=== PATIENT | male | born 1930 | race Caucasian/White ===

== ENCOUNTER 2016-11-21 15:37 | Observation (INO) | payer MEDICARE, BC ==
[2016-11-21] MEDS ORDERED: Sodium Chloride 0.9% 10 ML Syringe FLUSH PRN (16:04)
--- NOTE | 2016-11-21 16:08 | EDM.PDOC ---
ED HPI GENERAL MEDICAL PROBLEM - General Chief Complaint: General Stated Complaint: IRREGULAR EKG Time Seen by Provider: 11/21/16 15:40 Source of Information: Reports: Patient ([id number]) History Limitations: Reports: No Limitations - History of Present Illness Onset: Unknown/Unsure Duration: Chronic Improves with: Reports: None Worsens with: Reports: None Context: Reports: Sick Contact Associated Symptoms: Reports: No Other Symptoms - Related Data Allergies Allergy/AdvReac Type Severity Reaction Status Date / Time No Known Allergies Allergy Verified 11/21/16 15:56 Home Meds: Home Meds Acetaminophen with Codeine [Tylenol with Codeine #3 Tablet] 1 each PO Q6H PRN [History] Albuterol/Ipratropium [DuoNeb 3.0-0.5 MG/3 ML] 3 ml NEB BIDRT 04/07/15 [History] Aspirin [Halfprin] 81 mg PO DAILY 04/07/15 [History] Budesonide [Pulmicort] 0.25 mg NEB BIDRT 04/07/15 [History] Calcium Carbonate/Vitamin D3 [Calcium 600 + Vit D 200] 1 each PO DAILY 04/07/15 [History] Clopidogrel [Plavix] 75 mg PO DAILY 04/07/15 [History] Cyanocobalamin (Vitamin B-12) [Cyanocobalamin Injection] 1,000 mcg IM ASDIRECTED 04/07/15 [History] Isosorbide Mononitrate [Imdur] 30 mg PO DAILY 04/07/15 [History] Levothyroxine Sodium [Synthroid] 137 mcg PO ACBREAKFAST 04/07/15 [History] Metoprolol Tartrate [Lopressor] 25 mg PO BID 04/07/15 [History] Multivitamin [Multivitamins] 1 each PO DAILY 04/07/15 [History] Simvastatin [Zocor] 80 mg PO BEDTIME 04/07/15 [History] Zolpidem [Ambien] 10 mg PO BEDTIME 04/07/15 [History] Past Medical History Cardiovascular History: Reports: CAD, High Cholesterol, Hypertension, MS, Other (See Below) Other Cardiovascular History: HYPERLIPIDEMIA, NSTEMI, PERIPHERAL VASCULAR DIS. Musculoskeletal History: Reports: Fracture, Other (See Below) Other Musculoskeletal History: SEE SURGERY AREA Psychiatric History: Reports: Depression Hematologic History: Reports: B12 Deficiency - Past Surgical History Cardiovascular Surgical History: Reports: Carotid Endarterectomy, Coronary Artery Bypass, Other (See Below) Musculoskeletal Surgical History: Reports: Other (See Below) Social & Family History - Tobacco Use Smoking Status *Q: Former Smoker Years of Tobacco use: 10 Packs/Tins Daily: 1 Used Tobacco, but Quit: Yes Month Tobacco Last Used: Quit 40 years ago - Recreational Drug Use Recreational Drug Use: No ED ROS GENERAL - Review of Systems Review Of Systems: See Below Constitutional: Reports: No Symptoms HEENT: Reports: No Symptoms Respiratory: Reports: No Symptoms Cardiovascular: Reports: No Symptoms Endocrine: Reports: No Symptoms GI/Abdominal: Reports: No Symptoms : Reports: No Symptoms Musculoskeletal: Reports: No Symptoms Skin: Reports: No Symptoms Neurological: Reports: No Symptoms Psychiatric: Reports: No Symptoms Hematologic/Lymphatic: Reports: No Symptoms Immunologic: Reports: No Symptoms ED EXAM, GENERAL - Physical Exam Exam: See Below Exam Limited By: No Limitations General Appearance: Alert, WD/WN, No Apparent Distress Ears: Normal External Exam, Normal Canal, Hearing Grossly Normal, Normal TMs Ear Exam: Bilateral Ear: Auricle Normal, Canal Normal, TM normal Nose: Normal Inspection, Normal Mucosa, No Blood Throat/Mouth: Normal Inspection, Normal Lips, Normal Teeth, Normal Gums, Normal Oropharynx, Normal Voice, No Airway Compromise Head: Atraumatic, Normocephalic Neck: Normal Inspection, Supple, Non-Tender, Full Range of Motion Respiratory/Chest: No Respiratory Distress, Lungs Clear, Normal Breath Sounds, No Accessory Muscle Use, Chest Non-Tender Cardiovascular: Normal Peripheral Pulses, Regular Rate, Rhythm, No Edema, No Gallop, No JVD, No Murmur, No Rub, Other (EKG shows normal sinus rhythm with a right bundle branch block and 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 and seen on previous EKG dating back a 1999) GI/Abdominal: Normal Bowel Sounds, Soft, Non-Tender, No Organomegaly, No Distention, No Abnormal Bruit, No Mass (Male) Exam: No Hernia, Normal Inspection, Normal Prostate, Circumcised Rectal (Males) Exam: Normal Exam, Normal Rectal Tone, Prostate Normal Back Exam: Normal Inspection, Full Range of Motion, NT Extremities: Normal Inspection, Normal Range of Motion, Non-Tender, Normal Capillary Refill, No Pedal Edema Neurological: Alert, Oriented, CN II-XII Intact, Normal Cognition, Normal Gait, Normal Reflexes, No Motor/Sensory Deficits Psychiatric: Normal Affect, Normal Mood Skin Exam: Warm, Dry, Intact, Normal Color, No Rash, Other (Sutures removed in back of neck) Lymphatic: No Adenopathy Course - Vital Signs Last Recorded V/S: Last Vital Signs Temp 99.1 F 11/21/16 16:30 Pulse 60 11/21/16 16:30 Resp 20 11/21/16 16:30 BP 199/92 H 11/21/16 16:30 Pulse Ox 99 11/21/16 16:30 - Orders/Labs/Meds Orders: Active Orders 24 hr Category Date Time Status CXR [Chest 2V] [CR] Stat Exams 11/21/16 16:04 Taken BASIC METABOLIC PANEL,BMP [CHEM] Stat Lab 11/21/16 16:20 Received TROPONIN I [CHEM] Stat Lab 11/21/16 16:20 Received Sodium Chloride 0.9% [Saline Flush] Med 11/21/16 16:04 Active 10 ml FLUSH ASDIRECTED PRN Old Chart [Obtain Past Medical Record] [OM.PC] Routine Oth 11/21/16 16:05 Active Saline Lock Insert [OM.PC] Stat Oth 11/21/16 16:05 Ordered Medication Orders Sodium Chloride (Saline Flush) 10 ml FLUSH ASDIRECTED PRN PRN Reason: Keep Vein Open Labs: Laboratory Tests 11/21/16 Range/Units 16:20 WBC 7.1 (4.0-10.2) K/uL RBC 4.54 (4.33-5.41) M/uL Hgb 13.7 (13.1-16.8) g/dL Hct 42.3 (39.0-49.0) % MCV 93.2 (84.0-98.0) fL MCH 30.2 (28.2-33.3) pg MCHC 32.4 (31.7-36.0) g/dL RDW 13.5 (11.2-14.1) % Plt Count 199 (150-350) K/uL Neut % (Auto) 47.4 (45.0-80.0) % Lymph % (Auto) 35.5 (10.0-50.0) % [place] % (Auto) 10.2 (2.0-14.0) % Eos % (Auto) 6.5 H (0.0-5.0) % Baso % (Auto) 0.4 (0.0-2.0) % Neut # (Auto) 3.34 (1.40-7.00) K/uL Lymph # (Auto) 2.50 (0.50-3.50) K/uL [place] # (Auto) 0.72 (0.00-1.00) K/uL Eos # (Auto) 0.46 (0.00-0.50) K/uL Baso # (Auto) 0.03 (0.00-0.20) K/uL Meds: Medications Generic Name Dose Route Start Last Admin Trade Name Freq PRN Reason Stop Dose Admin Sodium Chloride 10 ml 11/21/16 16:04 Saline Flush FLUSH ASDIRECTED PRN Keep Vein Open Departure - Departure Time of Disposition: 16:44 Disposition: Home, Self-Care 01 Condition: Good 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) - Discharge Information Referrals: PCP,Not In Area [Primary Care Provider] - Forms: ED Department Discharge Care Plan Goals: Patient sent home with his current medications suture removal in the ER patient stable - My Orders Last 24 Hours: My Active Orders 11/21/16 16:04 CXR [Chest 2V] [CR] Stat Sodium Chloride 0.9% [Saline Flush] 10 ml FLUSH ASDIRECTED PRN 11/21/16 16:05 Old Chart [Obtain Past Medical Record] [OM.PC] Routine Saline Lock Insert [OM.PC] Stat 11/21/16 16:20 BASIC METABOLIC PANEL,BMP [CHEM] Stat TROPONIN I [CHEM] Stat - Assessment/Plan Last 24 Hours: My Active Orders 11/21/16 16:04 CXR [Chest 2V] [CR] Stat Sodium Chloride 0.9% [Saline Flush] 10 ml FLUSH ASDIRECTED PRN 11/21/16 16:05 Old Chart [Obtain Past Medical Record] [OM.PC] Routine Saline Lock Insert [OM.PC] Stat 11/21/16 16:20 BASIC METABOLIC PANEL,BMP [CHEM] Stat TROPONIN I [CHEM] Stat
[2016-11-21] MEDS ORDERED: Acetaminophen/Codeine 300-30 MG Tab PO PRN (18:59)
[2016-11-21] MEDS ORDERED: Cyanocobalamin (Vitamin B12) 1,000 MCG/ML SDV IM SCH (19:00)
[2016-11-21] MEDS ORDERED: Zolpidem 5 MG Tab PO SCH (20:00)
[2016-11-21] MEDS ORDERED: Simvastatin 20 MG Tab PO SCH (20:00)
[2016-11-21] MEDS: Albuterol/Ipratropium 3.0-0.5 MG/3 ML Neb Soln NEB SCH (21:30)
[2016-11-21] MEDS: Metoprolol Tartrate 25 MG Tab PO SCH (21:40)
[2016-11-21] MEDS: Budesonide 0.25 MG/2 ML Neb Susp NEB SCH (21:40)
[2016-11-22] MEDS ORDERED: Levothyroxine 25 MCG Tab PO SCH (07:30)
[2016-11-22] MEDS ORDERED: Levothyroxine 112 MCG Tab PO SCH (07:30)
[2016-11-22] MEDS: Albuterol/Ipratropium 3.0-0.5 MG/3 ML Neb Soln NEB SCH (07:35)
[2016-11-22] MEDS: Metoprolol Tartrate 25 MG Tab PO SCH (07:35)
[2016-11-22] MEDS: Budesonide 0.25 MG/2 ML Neb Susp NEB SCH (07:35)
[2016-11-22] MEDS ORDERED: Clopidogrel 75 MG Tab PO SCH (08:00)
[2016-11-22] MEDS ORDERED: Isosorbide Mononitrate 30 MG Tab.ER PO SCH (08:00)
[2016-11-22] MEDS ORDERED: Gabapentin 100 MG Cap PO SCH (08:00)
[2016-11-22] MEDS ORDERED: Aspirin 81 MG Tab.EC PO SCH (08:00)
[2016-11-22] MEDS ORDERED: Calcium Carbonate/Vitamin D3 625 MG-125 Unit Tab PO SCH (08:00)
[2016-11-22] MEDS ORDERED: Multivitamin Tab PO SCH (08:00)
--- NOTE | 2016-11-22 10:59 | PCM.DCSUM1 ---
Discharge Summary - Hospital Course Free Text/Narrative:: Patient is a 86-year-old who was referred from the clinic with dysrhythmia bifascicular block and a right bundle branch block patient is known to have coronary arterial disease has seen cardiology and cardiology does not think he' s a candidate for bypass or stenting today he seen in the emergency room his troponins were L first troponins were elevated and was admitted for observation he did fine his second troponin came down and so that his third there still elevated probably secondary to pulmonary disease patient is pain-free and wants to go home - Discharge Data Discharge Date: 11/22/16 Discharge Disposition: Home, Self-Care 01 Condition: Good - Patient Summary/Data Hospital Course: Patient did good troponins 3 were checked still slightly elevated we'll send home patient is to return if any chest pain or discomfort please see above narrative for more details patient will go home on his regular medications as ordered - Patient Instructions Diet: Heart Healthy Diet Activity: As Tolerated Driving: May Drive Today Showering/Bathing: May Shower - Discharge Plan Home Medications: Home Meds Acetaminophen with Codeine [Tylenol with Codeine #3 Tablet] 1 each PO Q6H PRN [History] Albuterol/Ipratropium [DuoNeb 3.0-0.5 MG/3 ML] 3 ml NEB BIDRT 04/07/15 [History] Aspirin [Halfprin] 81 mg PO DAILY 04/07/15 [History] Budesonide [Pulmicort] 0.25 mg NEB BIDRT 04/07/15 [History] Calcium Carbonate/Vitamin D3 [Calcium 600 + Vit D 200] 1 each PO DAILY 04/07/15 [History] Clopidogrel [Plavix] 75 mg PO DAILY 04/07/15 [History] Cyanocobalamin (Vitamin B-12) [Cyanocobalamin Injection] 1,000 mcg IM Q30D 04/07 [History] Isosorbide Mononitrate [Imdur] 30 mg PO DAILY 04/07/15 [History] Levothyroxine Sodium [Synthroid] 137 mcg PO ACBREAKFAST 04/07/15 [History] Metoprolol Tartrate [Lopressor] 25 mg PO BID 04/07/15 [History] Multivitamin [Multivitamins] 1 each PO DAILY 04/07/15 [History] Simvastatin [Zocor] 80 mg PO BEDTIME 04/07/15 [History] Zolpidem [Ambien] 10 mg PO BEDTIME 04/07/15 [History] Gabapentin [Neurontin] 100 mg PO TID 11/21/16 [History] Forms: ED Department Discharge Referrals: Stephen George MD [Primary Care Provider] - PCP,Not In Area [Ordering Only Provider] - - Discharge Summary/Plan Comment DC Time >30 min.: No Discharge Summary/Plan Comment: Patient will be discharged he is to follow-up with primary surgical site healed and clean - General Info Date of Service: 11/22/16 Admission Dx/Problem (Free Text: Irregular heart rate - Review of Systems General: Reports: No Symptoms HEENT: Reports: No Symptoms Pulmonary: Reports: Shortness of Breath Cardiovascular: Reports: No Symptoms Gastrointestinal: Reports: No Symptoms Genitourinary: Reports: No Symptoms Musculoskeletal: Reports: No Symptoms Skin: Reports: No Symptoms Neurological: Reports: No Symptoms Psychiatric: Reports: No Symptoms - Patient Data Vitals - Most Recent: Last Vital Signs Temp 98.6 F 11/22/16 07:47 Pulse 61 11/22/16 07:47 Resp 18 11/22/16 07:47 BP 152/97 H 11/22/16 07:47 Pulse Ox 95 11/22/16 07:47 Weight - Most Recent: 200 lb 15.997 oz I&O - Last 24 hours: Intake & Output 11/21/16 11/22/16 11/22/16 22:59 06:59 14:59 Intake Total 200 60 Balance 200 60 Lab Results - Last 24 hrs: Laboratory Results - last 24 hr 11/21/16 11/22/16 Range/Units 23:49 07:40 Troponin I 0.126 H* 0.117 H* (0.000-0.056) ng/mL Med Orders - Current: Current Medications Acetaminophen/Codeine Phosphate (Tylenol With Codeine No.3 300mg/30mg) 1 tab PO Q6H PRN PRN Reason: Pain Albuterol/Ipratropium (Duoneb 3.0-0.5 Mg/3 Ml) 3 ml NEB BIDRT [facility] Last Admin: 11/22/16 07:35 Dose: 3 ml Aspirin (Halfprin) 81 mg PO DAILY [facility] Last Admin: 11/22/16 07:35 Dose: 81 mg Budesonide (Pulmicort) 0.25 mg NEB BIDRT [facility] Last Admin: 11/22/16 07:35 Dose: 0.25 mg Calcium Carbonate (Oystcal-D 625 Mg-125 Units) 1 tab PO DAILY [facility] Last Admin: 11/22/16 07:35 Dose: 1 tab Clopidogrel Bisulfate (Plavix) 75 mg PO DAILY [facility] Last Admin: 11/22/16 07:35 Dose: 75 mg Cyanocobalamin (Vitamin B12) 1,000 mcg IM Q30D [facility] Gabapentin (Neurontin) 100 mg PO TID [facility] Last Admin: 11/22/16 07:35 Dose: 100 mg Isosorbide Mononitrate (Imdur) 30 mg PO DAILY [facility] Last Admin: 11/22/16 07:35 Dose: 30 mg Levothyroxine Sodium (Levothyroxine) 112 mcg PO ACBREAKFAST [facility] Last Admin: 11/22/16 07:35 Dose: 112 mcg Levothyroxine Sodium (Levothyroxine) 25 mcg PO ACBREAKFAST [facility] Last Admin: 11/22/16 07:35 Dose: 25 mcg Metoprolol Tartrate (Lopressor) 25 mg PO BID [facility] Last Admin: 11/22/16 07:35 Dose: 25 mg Multivitamins/Minerals/Vitamin C (Tab-A-Gavin) 1 tab PO DAILY [facility] Last Admin: 11/22/16 07:35 Dose: 1 tab Simvastatin (Zocor) 80 mg PO BEDTIME [facility] Last Admin: 11/21/16 21:29 Dose: 80 mg Sodium Chloride (Saline Flush) 10 ml FLUSH ASDIRECTED PRN PRN Reason: Keep Vein Open Last Admin: 11/22/16 07:36 Dose: 10 ml Zolpidem Tartrate (Ambien) 10 mg PO BEDTIME [facility] Last Admin: 11/21/16 21:27 Dose: 10 mg - Exam General: Reports: Alert, Oriented HEENT: Reports: Pupils Equal, Pupils Reactive, EOMI, Mucous Membr. Moist/[place] Neck: Reports: Supple Lungs: Reports: Clear to Auscultation, Normal Respiratory Effort Cardiovascular: Reports: Regular Rate, Regular Rhythm GI/Abdominal Exam: Normal Bowel Sounds, Soft, Non-Tender, No Organomegaly, No Distention, No Abnormal Bruit, No Mass, Pelvis Stable (Male) Exam: No Hernia, Normal Inspection, Normal Prostate, Circumcised Rectal (Males) Exam: Normal Exam, Normal Rectal Tone, Prostate Normal Back Exam: Reports: Normal Inspection, Full Range of Motion Extremities: Normal Inspection, Normal Range of Motion, Non-Tender, No Pedal Edema, Normal Capillary Refill Skin: Reports: Warm, Dry, Intact Wound/Incisions: Reports: Healing Well Neurological: Reports: No New Focal Deficit Psy/Mental Status: Reports: Alert, Normal Affect, Normal Mood EKG INTERPRETATION EKG Date: 11/22/16 [place]: Normal P-Wave: Present QRS: Normal ST-T: Normal QT: Normal EKG Interpretation Comments: EKG unchanged for the last 18 years *Q Meaningful Use (DIS) - VTE *Q VTE Criteria *Q: - Stroke *Q Stroke Criteria *Q: - AMI *Q AMI Criteria *Q:
[2016-11-22 11:06] VITALS: BP 155/96
== END 2016-11-22 11:30 | disposition home or self-care (01) ==
LOC: LL.ED 15:37 → LL.MS 17:06
PROVIDERS: ADMIT Family Medicine; ATTEND Family Medicine
DX: R79.89 Other specified abnormal findings of blood chemistry (principal); I25.2 Old myocardial infarction; I25.10 Atherosclerotic heart disease of native coronary artery without angina pectoris; I10 Essential (primary) hypertension; E78.00 Pure hypercholesterolemia, unspecified; E78.5 Hyperlipidemia, unspecified; F32.9 Major depressive disorder, single episode, unspecified; Z79.899 Other long term (current) drug therapy; Z79.82 Long term (current) use of aspirin; Z87.891 Personal history of nicotine dependence; Z95.1 Presence of aortocoronary bypass graft; Z98.890 Other specified postprocedural states
CPT/HCPCS: 36415; 71020; 80048; 84484; 85025; 93005; 94664; 99285; A9270; G0378; J7050; J7634

== ENCOUNTER 2021-07-19 11:33 | Observation (INO) | payer MEDICARE, BC ==
[2021-07-19] MEDS ORDERED: Sodium Chloride 0.9% 10 ML Syringe FLUSH PRN (11:39)
[2021-07-19] MEDS ORDERED: Aspirin 81 MG Tab.EC PO ONE (12:11)
[2021-07-19 12:21] LABS: ANION GAP 7.2 meq/L (7-15)
[2021-07-19] MEDS ORDERED: Acetaminophen/Codeine 300-30 MG Tab PO PRN (15:00)
[2021-07-19] MEDS: Metoprolol Tartrate 25 MG Tab PO SCH (17:24)
[2021-07-19] MEDS ORDERED: Sodium Chloride 0.9% 500 ML IV SCH (17:30)
[2021-07-19] MEDS: Pregabalin 25 MG Cap PO SCH (17:43)
[2021-07-19] MEDS ORDERED: Gabapentin 100 MG Cap PO SCH (18:00)
[2021-07-19] MEDS ORDERED: Zolpidem 5 MG Tab PO SCH (20:00)
[2021-07-19] MEDS ORDERED: Simvastatin 20 MG Tab PO SCH (20:00)
[2021-07-19] MEDS: Budesonide 0.25 MG/2 ML Neb Susp NEB SCH (20:10)
[2021-07-19] MEDS: Albuterol/Ipratropium 3.0-0.5 MG/3 ML Neb Soln NEB SCH (20:10)
[2021-07-19] MEDS ORDERED: Metoprolol Tartrate 25 MG Tab PO ONE (23:49)
[2021-07-20] MEDS: Pregabalin 25 MG Cap PO SCH ×2 (07:40→11:56)
[2021-07-20] MEDS: Budesonide 0.25 MG/2 ML Neb Susp NEB SCH (07:40)
[2021-07-20] MEDS: Albuterol/Ipratropium 3.0-0.5 MG/3 ML Neb Soln NEB SCH (07:40)
[2021-07-20] MEDS: Metoprolol Tartrate 25 MG Tab PO SCH (07:41)
[2021-07-20] MEDS ORDERED: Levothyroxine 25 MCG Tab PO SCH (08:00)
[2021-07-20] MEDS ORDERED: Levothyroxine 112 MCG Tab PO SCH (08:00)
[2021-07-20] MEDS ORDERED: Aspirin 81 MG Tab.EC PO SCH (08:00)
[2021-07-20] MEDS ORDERED: Isosorbide Mononitrate 30 MG Tab.ER PO SCH (08:00)
[2021-07-20] MEDS ORDERED: Clopidogrel 75 MG Tab PO SCH (08:00)
[2021-07-20 08:02] LABS: ANION GAP 7.7 meq/L (7-15)
[2021-07-20 11:59] VITALS: BP 145/94; PULSE 61
== END 2021-07-20 15:35 | disposition home or self-care (01) ==
LOC: LL.ED 11:33 → INTOOBSV 13:05 → LL.MS 13:05
PROVIDERS: ADMIT Emergency Medicine; ATTEND Emergency Medicine
DX: R61 Generalized hyperhidrosis (principal); R07.89 Other chest pain; R55 Syncope and collapse; R79.89 Other specified abnormal findings of blood chemistry; R00.1 Bradycardia, unspecified; N28.9 Disorder of kidney and ureter, unspecified; I25.10 Atherosclerotic heart disease of native coronary artery without angina pectoris; E78.5 Hyperlipidemia, unspecified; E03.9 Hypothyroidism, unspecified; E53.8 Deficiency of other specified B group vitamins; J43.9 Emphysema, unspecified; I50.9 Heart failure, unspecified; I11.0 Hypertensive heart disease with heart failure; Z79.82 Long term (current) use of aspirin; Z79.899 Other long term (current) drug therapy
CPT/HCPCS: 36415; 71045; 80048; 80053; 81001; 83605; 83735; 83880; 84443; 84484; 85025; 85379; 85610; 93005; 94640; 99285-25; A9270-GY; G0378; J3490; J7040; J7620-GY

== ENCOUNTER 2021-07-31 12:12 | Emergency (ER) | payer MEDICARE, BC ==
[2021-07-31 12:58] LABS: ANION GAP 7.8 meq/L (7-15); CHLORIDE,CL 106 mmol/L (98-107); SODIUM,NA 142 mmol/L (136-145)
[2021-07-31 13:26] VITALS: BP 133/81; PULSE 62
[2021-07-31] MEDS: Acetaminophen/Codeine 300-30 MG Tab PO ONE (13:43)
== END 2021-07-31 14:00 | disposition home or self-care (01) ==
LOC: LL.ED 12:12
DX: R53.81 Other malaise (principal); I25.10 Atherosclerotic heart disease of native coronary artery without angina pectoris; I10 Essential (primary) hypertension; I25.2 Old myocardial infarction; E03.9 Hypothyroidism, unspecified; E66.9 Obesity, unspecified; Z68.30 Body mass index [BMI] 30.0-30.9, adult; Z79.899 Other long term (current) drug therapy; Z79.82 Long term (current) use of aspirin; Z90.49 Acquired absence of other specified parts of digestive tract
CPT/HCPCS: 36415; 80053; 81003; 85025; 99283; 99284; A9270-GY

== ENCOUNTER 2021-08-02 15:52 | Emergency (ER) | payer MEDICARE, BC ==
[2021-08-02 16:30] LABS: ANION GAP 11.3 meq/L (7-15)
[2021-08-02 16:35] VITALS: BP 175/88; PULSE 74
== END 2021-08-02 18:00 | disposition home or self-care (01) ==
LOC: LL.ED 15:52
DX: R10.84 Generalized abdominal pain (principal); I25.10 Atherosclerotic heart disease of native coronary artery without angina pectoris; E78.00 Pure hypercholesterolemia, unspecified; I10 Essential (primary) hypertension; I25.2 Old myocardial infarction; E03.9 Hypothyroidism, unspecified; E66.9 Obesity, unspecified; Z68.29 Body mass index [BMI] 29.0-29.9, adult; Z79.82 Long term (current) use of aspirin; Z79.02 Long term (current) use of antithrombotics/antiplatelets; Z79.899 Other long term (current) drug therapy
CPT/HCPCS: 36415; 74176; 80048; 85025; 99284; 99284-25